=== PATIENT | male | born 1975 | race Caucasian/White ===

== ENCOUNTER 2016-07-18 10:51 | Emergency (ER) | payer SELFPAY ==
[2016-07-18 10:57] VITALS: BP 156/84; PULSE 78; TEMP 98.1; BMI 30.9
--- NOTE | 2016-07-18 11:40 | PDOC ---
History of Present Illness - General Chief Complaint: Injury Stated Complaint: RIGHT LEG INJURY Time Seen by Provider: 07/18/16 11:21 History Source: Patient Exam Limitations: No Limitations - History of Present Illness Initial Comments: 07/18/16 11:37 41 yr male twisted right foot yesterday in a pothole. Pt has swelling took tylenol for pain yesterday. no PMHX. Severity: reports: mild Past History - Past Medical History Allergies/Adverse Reactions: Allergies Allergy/AdvReac Type Severity Reaction Status Date / Time No Known Allergies Allergy Verified 07/18/16 10:57 Home Medications: Ambulatory Orders NK [No Known Home Medication] 07/18/16 Other medical history: NONE - Psycho/Social/Smoking Cessation Hx Anxiety: No Suicidal Ideation: No Smoking History: Never smoked Hx Alcohol Use: No Drug/Substance Use Hx: No Substance Use Type: None Trauma Specific PMHX - Complaint Specific PMHX Arthritis: No Back Injury: No Neck Injury: No Hx Sacro Iliac Joint Dysfunction: No Review of Systems - Review of Systems Able to Perform ROS?: Yes Is the patient limited Romanian proficient: No Constitutional: No: Symptoms Reported HEENTM: No: Symptoms Reported Respiratory: No: Symptoms reported Cardiac (ROS): No: Symptoms Reported ABD/GI: No: Symptoms Reported : No: Symptoms Reported Musculoskeletal: Yes: See HPI *Physical Exam - Vital Signs Last Vital Signs Temp Pulse Resp BP Pulse Ox 98.1 F 78 20 156/84 100 07/18/16 10:52 07/18/16 10:52 07/18/16 10:52 07/18/16 10:52 07/18/16 10:52 - Physical Exam General Appearance: Yes: Nourished, Appropriately Dressed HEENT: positive: EOMI, PREETHI Neck: positive: Supple Respiratory/Chest: positive: Lungs Clear, Normal Breath Sounds Cardiovascular: positive: Regular Rhythm, Regular Rate Musculoskeletal: positive: Normal Inspection Extremity: positive: Normal Capillary Refill, Tender (top of the right foot ) Integumentary: positive: Normal Color, Dry, Warm Neurologic: positive: education adviser II-XII NML intact, Fully Oriented, Alert, Normal Mood/ Affect, Normal Response, Motor Strength 5/5 ED Treatment Course - RADIOLOGY Radiology Studies Ordered: Category Date Time Status ANKLE & FOOT-RIGHT* [RAD] Stat Radiology 07/18/16 11:27 Ordered Medical Decision Making - Medical Decision Making 07/18/16 11:39 cc: right foot swelling after twisting yesterday in a pothole 07/18/16 11:40 07/18/16 12:31 use the hard sole shoe as directed elevate and apply ice every 2hrs for 20 minutes to the area of swelling and pain take motrin as needed for pain follow with the orthopedist 07/22/16 12:48 *DC/Admit/Observation/Transfer Diagnosis at time of Disposition: Sprain of foot Qualifiers: Encounter type: initial encounter Laterality: right Qualified Code(s): S93.601A - Unspecified sprain of right foot, initial encounter - Discharge Dispostion Disposition: HOME Condition at time of disposition: Good - Referrals Referrals: Shon Villafana MD [Staff Physician] - - Patient Instructions Additional Instructions: Use el zapato de la suela dura elizabeth se indica Elevar y aplicar hielo cada 2 horas geo 20 minutos al juarez de hinchazn y dolor Saba motrin segn sea necesario para el dolor Seguir con el ortopedista use the hard sole shoe as directed elevate and apply ice every 2hrs for 20 minutes to the area of swelling and pain take motrin as needed for pain follow with the orthopedist
== END 2016-07-18 12:39 | disposition home or self-care (01) ==
LOC: JERFT 10:51
DX: S93.601A Unspecified sprain of right foot, initial encounter (principal); X50.1XXA Overexertion from prolonged static or awkward postures, initial encounter; Y93.01 Activity, walking, marching and hiking; Y92.480 Sidewalk as the place of occurrence of the external cause; Y99.8 Other external cause status
CPT/HCPCS: 73610-TC-RT; 73630-TC-RT; 99281-25